=== PATIENT | female | born 1990 | race Caucasian/White ===

== ENCOUNTER 2017-03-09 21:12 | Inpatient (IN) ==
[2017-03-10] MEDS ORDERED: LACTATED RINGERS 250 ML IV ONE (00:22)
[2017-03-10] MEDS ORDERED: MEPERIDINE 50 MG/1 ML VIAL IV PRN (00:22)
[2017-03-10] MEDS ORDERED: BUTORPHANOL 2 MG/ML VIAL IV PRN (00:22)
[2017-03-10] MEDS: LACTATED RINGERS 1,000 ML IV SCH ×4 (00:30→19:20)
[2017-03-10 01:27] LABS: Basophils # 0.1 10*3/uL (0.0-0.2); Basophils % 0.5 % (0.0-0.8); Eosinophils # 0.1 10*3/uL (0.0-0.87); Eosinophils % 0.8 % (0.00-10.9); Hematocrit 34.7 VOL% (35.7-47.0); Hemoglobin 11.1 GM/DL (12.0-16.0); Immature Granulocytes % 2.9 %; Lymphocytes # 2.5 10*3/uL (1.4-4.0); Mean Corpuscular Hemoglobin 27 PG (27-34); Mean Corpuscular Volume 85.5 FL (87-102); Mean Platelet Volume 10.1 FL (9.6-12.0); Monocytes # 0.7 10*3/uL (0.11-0.8); Monocytes % 6.2 % (1.7-12.7); Neutrophils # 6.9 10*3/uL (1.4-7.4); Neutrophils % 65.6 % (38.7-73.9); Platelet Count 254 T/CUMM (130-400); Red Blood Count 4.06 MC/CUMM (3.8-5.5); Red Cell Distribution Width 14.9 % (9.3-17.3); White Blood Count 10.5 T/CUMM (4-12)
[2017-03-10] MEDS ORDERED: OXYTOCIN/LR 20 UNIT/1,000 ML BAG IV ONE ×2 (12:42→23:51)
[2017-03-10] MEDS ORDERED: OXYTOCIN/LR 20 UNIT/1,000 ML BAG IV SCH (12:50)
[2017-03-10] MEDS: ONDANSETRON 4 MG/2 ML VIAL IV PRN ×2 (14:32→23:40)
[2017-03-10] MEDS ORDERED: ePHEDrine 50 MG/ML AMP IV PRN (15:28)
[2017-03-10] MEDS ORDERED: CITRIC ACID/SODIUM CITRATE 30 ML UDCUP PO ONE (15:28)
[2017-03-10] MEDS ORDERED: FAMOTIDINE 20 MG/2 ML VIAL IV ONE (15:28)
[2017-03-10] MEDS ORDERED: LACTATED RINGERS 1,000 ML IV ONE (15:28)
[2017-03-10] MEDS ORDERED: hydrOXYzine HCL 25 MG/1 ML VIAL IM PRN (15:29)
[2017-03-10] MEDS ORDERED: PROMETHAZINE 25 MG/1 ML VIAL IM ONE (15:29)
[2017-03-10] MEDS ORDERED: diphenhydrAMINE 50 MG/1 ML VIAL IV PRN ×2 (15:29)
[2017-03-10] MEDS ORDERED: fentaNYL 2 MCG/ROPIV 0.2% EPID 150 ML EPIDURAL SCH (15:30)
[2017-03-10 17:27] LABS: Apearance,Urine CLEAR (Clear); Bilirubin,Urine Negative (Negative); Blood, Urine Negative (Negative); Glucose,Urine (UA) Negative (Negative); Hyaline Casts,Urine 1 /LPF (0-3); Ketones,Urine 20 mg/dL (Negative); Mucus,Urine Occasional /LPF (Occasional); Nitrite,Urine Negative (Negative); Protein,Urine Negative; RBC,Urine <1 /HPF (0-4); Urine Color Straw (Yellow); Urine Specific Gravity 1.008 (1.001-1.035); Urine Urobilinogen < 2.0 EU/DL (0.2-1.0); WBC,Urine 1 /HPF (0-6)
[2017-03-10] MEDS ORDERED: miSOPROStol 200 MCG TABLET ONE (21:58)
[2017-03-10] MEDS ORDERED: OXYTOCIN/LR 0 UNIT/0 ML BAG IV ONE (21:58)
[2017-03-10] MEDS ORDERED: OXYTOCIN 10 UNIT/ML VIAL ONE (21:58)
[2017-03-10] MEDS ORDERED: CARBOPROST TROMETHAMINE 250 MCG/ML AMP IM ONE (21:59)
[2017-03-10] MEDS ORDERED: METHYLERGONOVINE 0.2 MG/1 ML AMP ONE (21:59)
[2017-03-10 23:39] LABS: Cord Arterial Blood HCO3 15.2 MMOL/L
[2017-03-10 23:49] LABS: Cord Venous Blood PCO2 68.8 MMHG; Cord Venous Blood PO2 15.7
[2017-03-10] MEDS ORDERED: LANOLIN 50% CREAM 0.3 OZ TUBE TOP PRN (23:51)
[2017-03-10] MEDS ORDERED: BISACODYL 10 MG SUPP RECTAL PRN (23:51)
[2017-03-10] MEDS ORDERED: RHO(D) IMMUNE GLOBULIN 300 MCG SYRINGE IM ONE (23:51)
[2017-03-10] MEDS ORDERED: DIPH/TET/ACEL PERT BOOSTER VACCINE 0.5 ML VIAL IM ONE (23:51)
[2017-03-10] MEDS ORDERED: MEASLES/MUMPS/RUBELLA VACCINE 0.5 ML VIAL SUBCUT ONE (23:51)
[2017-03-10] MEDS ORDERED: oxyCODONE/ACETAMINOPHEN 5-325 MG TABLET PO PRN ×2 (23:51)
[2017-03-10] MEDS ORDERED: HYDROCORTISONE 2.5% RECTAL CREAM 30 GM TUBE TOP PRN (23:51)
[2017-03-10] MEDS ORDERED: ONDANSETRON 4 MG/2 ML VIAL IV PRN (23:51)
[2017-03-10] MEDS ORDERED: ACETAMINOPHEN 325 MG TABLET PO PRN (23:51)
[2017-03-10] MEDS ORDERED: WITCH HAZEL PADS 100/JAR TOP PRN (23:51)
[2017-03-10] MEDS ORDERED: BENZOCAINE 20%/MENTHOL 0.5% SPRAY 56 GM CAN TOP PRN (23:51)
[2017-03-11 05:03] LABS: Basophils % 0.1 % (0.0-0.8); Eosinophils % 0.1 % (0.00-10.9); Hematocrit 28.7 VOL% (35.7-47.0); Hemoglobin 9.1 GM/DL (12.0-16.0); Immature Granulocytes % 0.9 %; Immature Granulocytes Absolute 0.15 #; Lymphocytes # 1.3 10*3/uL (1.4-4.0); Lymphocytes % 7.9 % (21.3-54.2); Mean Corpuscular HGB Conc 31.7 GM/DL (32-36); Mean Corpuscular Hemoglobin 27 PG (27-34); Mean Corpuscular Volume 85.4 FL (87-102); Mean Platelet Volume 10.1 FL (9.6-12.0); Monocytes % 6.1 % (1.7-12.7); Neutrophils # 13.8 10*3/uL (1.4-7.4); Neutrophils % 84.9 % (38.7-73.9); Platelet Count 186 T/CUMM (130-400); Red Blood Count 3.36 MC/CUMM (3.8-5.5); Red Cell Distribution Width 14.8 % (9.3-17.3); White Blood Count 16.3 T/CUMM (4-12)
[2017-03-11] MEDS: IBUPROFEN 800 MG TABLET PO PRN ×3 (06:05→21:25)
[2017-03-11] MEDS: DOCUSATE SODIUM 100 MG CAPSULE PO SCH ×2 (08:27→21:23)
[2017-03-11] MEDS: MULTIVITAMIN (PRENATAL) TABLET PO SCH (08:27)
[2017-03-11] MEDS ORDERED: MAGNESIUM HYDROXIDE SUSP 30 ML UDCUP PO PRN (12:57)
[2017-03-12] MEDS: IBUPROFEN 800 MG TABLET PO PRN (06:19)
[2017-03-12 07:41] VITALS: BP 118/70
[2017-03-12] MEDS: DOCUSATE SODIUM 100 MG CAPSULE PO SCH (08:27)
[2017-03-12] MEDS: MULTIVITAMIN (PRENATAL) TABLET PO SCH (08:27)
== END 2017-03-12 12:20 | disposition home or self-care (01) | DRG 775 ==
LOC: N.LDOUT 21:12 → N.LD 21:23 → N.OB 03-11 02:45
PROVIDERS: ADMIT Specialist; ATTEND Specialist

== ENCOUNTER 2020-06-16 23:08 | Inpatient (IN) ==
[2020-06-16 23:33] LABS: Bacteria,Urine Occasional /HPF (Few); Bilirubin,Urine Negative (Negative); Blood, Urine Negative (Negative); Glucose,Urine (UA) Negative (Negative); Ketones,Urine Negative (Negative); Mucus,Urine Occasional /LPF (Occasional); Nitrite,Urine Negative (Negative); Protein,Urine Negative; RBC,Urine 2 /HPF (0-4); Squamous Epithelial Cell,Urine Occasional /HPF (0-10); Urine Appearance CLEAR (Clear); Urine Color Straw (Yellow); Urine Specific Gravity 1.008 (1.001-1.035); Urine Urobilinogen < 2.0 EU/DL (0.2-1.0); WBC,Urine 1 /HPF (0-6)
[2020-06-17] MEDS ORDERED: MEPERIDINE 50 MG/1 ML VIAL IV PRN (00:21)
[2020-06-17] MEDS ORDERED: ONDANSETRON 4 MG/2 ML VIAL IV PRN ×2 (00:21→12:30)
[2020-06-17] MEDS ORDERED: BUTORPHANOL 2 MG/ML VIAL IV PRN (00:21)
[2020-06-17] MEDS ORDERED: ePHEDrine 50 MG/ML VIAL IV PRN (00:39)
[2020-06-17] MEDS ORDERED: diphenhydrAMINE 50 MG/1 ML VIAL IV PRN ×2 (00:39)
[2020-06-17] MEDS ORDERED: PROMETHAZINE 25 MG/1 ML VIAL IM ONE (00:39)
[2020-06-17] MEDS ORDERED: NALOXONE 0.4 MG/ML VIAL IV PRN (00:39)
[2020-06-17] MEDS ORDERED: hydrOXYzine HCL 25 MG/1 ML VIAL IM PRN (00:39)
[2020-06-17] MEDS: LACTATED RINGERS 1,000 ML IV SCH ×2 (00:40→01:31)
[2020-06-17] MEDS ORDERED: CITRIC ACID/SODIUM CITRATE 30 ML UDCUP PO PRN (00:41)
[2020-06-17] MEDS ORDERED: FAMOTIDINE 20 MG/2 ML VIAL IV PRN (00:41)
[2020-06-17 00:43] LABS: Basophils % 0.3 % (0.0-0.8); Eosinophils # 0.1 10*3/uL (0.0-0.87); Eosinophils % 0.6 % (0.00-10.9); Hematocrit 34.8 VOL% (35.7-47.0); Hemoglobin 10.9 GM/DL (12.0-16.0); Immature Granulocytes % 2.4 %; Immature Granulocytes Absolute 0.24 #; Lymphocytes # 2.5 10*3/uL (1.4-4.0); Lymphocytes % 25.4 % (21.3-54.2); Mean Corpuscular HGB Conc 31.3 GM/DL (32-36); Mean Corpuscular Volume 86.4 FL (87-102); Mean Platelet Volume 10.5 FL (9.6-12.0); Monocytes % 5.9 % (1.7-12.7); Neutrophils % 65.4 % (38.7-73.9); Platelet Count 203 T/CUMM (130-400); Red Blood Count 4.03 MC/CUMM (3.8-5.5); Red Cell Distribution Width 15.1 % (9.3-17.3)
[2020-06-17 01:05] LABS: Alanine Aminotransferase 16 U/L (13-56); Albumin 2.9 G/DL (3.4-5.0); Alkaline Phosphatase 123 U/L (45-117); Aspartate Amino Transferase 14 U/L (0-37); Bilirubin,Total < 0.39 MG/DL (0.2-1.0); Blood Urea Nitrogen 10 MG/DL (7-18); Carbon Dioxide 25 MMOL/L (21-32); Estimated Glom Filtration Rate 124 ML/MIN; Glucose 82 MG/DL (74-106); Osmolality,Calculated 272.7 MOS/KG (273-304); Potassium 3.9 MMOL/L (3.5-5.1); Sodium 138 MMOL/L (136-145); Total Protein 6.7 G/DL (6.4-8.2)
[2020-06-17] MEDS: fentaNYL 2 MCG/ROPIV 0.2% EPID 100 ML EPIDURAL SCH ×2 (01:59→10:06)
[2020-06-17 02:52] LABS: Bilirubin,Urine Negative (Negative); Blood, Urine Negative (Negative); Glucose,Urine (UA) Negative (Negative); Ketones,Urine Negative (Negative); Mucus,Urine Occasional /LPF (Occasional); Nitrite,Urine Negative (Negative); Protein,Urine Negative; RBC,Urine 1 /HPF (0-4); Squamous Epithelial Cell,Urine Occasional /HPF (0-10); Urine Appearance CLEAR (Clear); Urine Color Straw (Yellow); Urine Urobilinogen < 2.0 EU/DL (0.2-1.0); WBC,Urine 1 /HPF (0-6)
[2020-06-17] MEDS ORDERED: miSOPROStoL 200 MCG TABLET ONE (07:59)
[2020-06-17] MEDS ORDERED: METHYLERGONOVINE 0.2 MG/1 ML AMP ONE (07:59)
[2020-06-17] MEDS ORDERED: OXYTOCIN/LR 20 UNIT/1,000 ML BAG IV ONE ×2 (07:59→12:30)
[2020-06-17] MEDS ORDERED: TRANEXAMIC ACID 1,000 MG/10 ML VIAL ONE (07:59)
[2020-06-17] MEDS ORDERED: CARBOPROST TROMETHAMINE 250 MCG/ML AMP IM ONE (08:00)
[2020-06-17] MEDS ORDERED: SODIUM CHLORIDE 0.9% 0 ML IV ONE (08:20)
[2020-06-17] MEDS ORDERED: OXYTOCIN/LR 20 UNIT/1,000 ML BAG IV SCH (10:30)
[2020-06-17] MEDS ORDERED: WITCH HAZEL PADS 100/JAR TOP PRN (12:30)
[2020-06-17] MEDS ORDERED: LANOLIN 50% CREAM 0.3 OZ TUBE TOP PRN (12:30)
[2020-06-17] MEDS ORDERED: ACETAMINOPHEN 325 MG TABLET PO PRN (12:30)
[2020-06-17] MEDS ORDERED: BENZOCAINE 20%/MENTHOL 0.5% SPRAY 56 GM CAN TOP PRN (12:30)
[2020-06-17] MEDS ORDERED: HYDROCORTISONE 2.5% RECTAL CREAM 30 GM TUBE TOP PRN (12:30)
[2020-06-17] MEDS ORDERED: MEASLES/MUMPS/RUBELLA VACCINE 0.5 ML VIAL SUBCUT ONE (12:30)
[2020-06-17] MEDS ORDERED: DIPH/TET/ACEL PERT BOOSTER VACCINE 0.5 ML VIAL IM ONE (12:30)
[2020-06-17] MEDS ORDERED: RHO(D) IMMUNE GLOBULIN 300 MCG SYRINGE IM ONE (12:30)
[2020-06-17] MEDS ORDERED: BISACODYL 10 MG SUPP RECTAL PRN (12:30)
[2020-06-17] MEDS ORDERED: IBUPROFEN 800 MG TABLET PO PRN (12:30)
[2020-06-17] MEDS ORDERED: oxyCODONE/ACETAMINOPHEN 5-325 MG TABLET PO PRN ×2 (12:30)
[2020-06-17 12:36] LABS: Cord Venous Blood HCO3 26.4 MMOL/L; Cord Venous Blood PCO2 42.1 MMHG; Cord Venous Blood PO2 32.6 MMHG
[2020-06-17] MEDS: DOCUSATE SODIUM 100 MG CAPSULE PO SCH (20:51)
[2020-06-18 05:47] LABS: Basophils % 0.2 % (0.0-0.8); Eosinophils # 0.1 10*3/uL (0.0-0.87); Eosinophils % 0.6 % (0.00-10.9); Hematocrit 31.3 VOL% (35.7-47.0); Hemoglobin 9.9 GM/DL (12.0-16.0); Immature Granulocytes % 1.3 %; Immature Granulocytes Absolute 0.14 #; Lymphocytes # 2.1 10*3/uL (1.4-4.0); Lymphocytes % 18.9 % (21.3-54.2); Mean Corpuscular HGB Conc 31.6 GM/DL (32-36); Mean Corpuscular Volume 85.8 FL (87-102); Mean Platelet Volume 10.4 FL (9.6-12.0); Monocytes % 6.2 % (1.7-12.7); Neutrophils % 72.8 % (38.7-73.9); Platelet Count 176 T/CUMM (130-400); Red Blood Count 3.65 MC/CUMM (3.8-5.5); Red Cell Distribution Width 15.1 % (9.3-17.3); White Blood Count 10.8 T/CUMM (4-12)
[2020-06-18] MEDS: DOCUSATE SODIUM 100 MG CAPSULE PO SCH ×2 (10:33→21:39)
[2020-06-19 07:36] VITALS: BP 114/67
[2020-06-19] MEDS: DOCUSATE SODIUM 100 MG CAPSULE PO SCH (08:50)
== END 2020-06-19 12:00 | disposition home or self-care (01) | DRG 807 ==
LOC: N.LDOUT 23:08 → N.LD 23:10 → N.OB 06-18 06:49
PROVIDERS: ADMIT Obstetrics & Gynecology; ATTEND Obstetrics & Gynecology